=== PATIENT | female | born 1935 | race Caucasian/White ===

== ENCOUNTER 2018-08-17 16:12 | Inpatient (IN) | payer MEDICARE ==
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
--- NOTE | ~2018-08-17 | DS ---
PATIENT:ALEJO MARSH :31 MEDICAL RECORD: [id number] DISCHARGE SUMMARY ADMISSION DATE: 08/17/18 DISCHARGE DATE: 08/26/18 IDENTIFYING DATA: The patient is 83 years old and she was admitted to the hospital on a voluntary basis. The patient was having suicidal thoughts. Her daughter lives in [place] and is trying to manage her mother. The daughter has guardianship and apparently, the patient has been very agitated, disruptive, angry and is calling the police with very bizarre statements. The mother is also doing foolish things like letting a homeless man she found to live in her house with her. She is angry with the daughter for getting guardianship and made suicidal statements. HOSPITAL COURSE: The patient was admitted to the hospital and fully evaluated from both a medical, psychological, and social standpoint. She was found to have a significantly advanced dementia and was experiencing mood lability and impaired judgment associated with the dementia. She was treated with mood stabilizing and memory enhancing medications. She did show improvement in her behaviors and mood. She showed little or no improvement in her cognitive deficits. She was subsequently transitioned home with a time cycle operator caregiver who will be there on a 24-hour a day basis. DISCHARGE DIAGNOSES: AXIS I: Senile dementia of the Alzheimer's type with behavioral disturbances. AXIS II: None. AXIS III: Urinary frequency and gastroesophageal reflux disease. AXIS IV: Moderate. AXIS V: Global assessment of functioning is 40. PLAN: At the time of discharge, the patient was not dangerous to herself or others in any direct way. She did need supervision and arrangements were made for this. Her long-term prognosis is guarded. TRANSINT:[id number] Voice Confirmation ID: [id number] DOCUMENT ID: [id number] JAVAN RAMIREZ MD at 1229 CC: [id number] DICTATION DATE: 08/28/18 0916 SHOP COORDINATOR: 08/29/18 0039 DIS IN 08/26/18 [place] [id number] [place] [address]
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
--- NOTE | ~2018-08-17 | PN ---
PATIENT:ALEJO MARSH MEDICAL RECORD: [id number] LOCATION:[facility] ADMISSION DATE: 08/17/18 PROGRESS NOTE DATE OF SERVICE: 08/23/2018 SUBJECTIVE: The patient's case was discussed with staff. She has no new complaint. OBJECTIVE: The patient denies intent to harm herself or others. Her thought are better organized today. She is denying that she would want to hurt herself. She still insists that this homeless man who has been arrested for stealing from her should simply be released and returned to her home. She says that whatever he has stolen she will gladly just simply give to him. The daughter is her guardian. In the next few days if this level of improvement is maintained, she will be going to her own home, but there will be a live-in 24-hour a day caregiver with her. TRANSINT:[id number] Voice Confirmation ID: [id number] DOCUMENT ID: [id number] JAVAN RAMIREZ MD at 1233 CC: [id number] DICTATION DATE: 08/23/18 1308 MACHINE GROUP LEADER: 08/23/18 1433 ADM IN [facility] [address] [place] [address]
--- NOTE | ~2018-08-17 | PN ---
PATIENT:ALEJO MARSH MEDICAL RECORD: [id number] LOCATION:[facility] ADMISSION DATE: 08/17/18 PROGRESS NOTE DATE OF SERVICE: 08/26/2018 SUBJECTIVE: The patient's case was discussed with staff. She has no new complaint. OBJECTIVE: The patient is in good behavioral control, but quite impaired cognitively. She denies that she would seek to harm herself or others. She generally is tolerating her medicines well. ASSESSMENT: No change in diagnoses. PLAN: The patient will be transitioned out of the hospital soon. Her long-term prognosis is guarded. Followup will be with her primary care physician. TRANSINT:[id number] Voice Confirmation ID: [id number] DOCUMENT ID: [id number] JAVAN RAMIREZ MD at 0945 CC: [id number] DICTATION DATE: 08/26/18 1356 [place] UNDERWRITER: 08/26/18 1421 DIS IN 08/26/18 [place] [id number] [place] [address]
--- NOTE | ~2018-08-17 | PN ---
PATIENT:ALEJO MARSH MEDICAL RECORD: [id number] LOCATION:[facility] ADMISSION DATE: 08/17/18 PROGRESS NOTE DATE OF SERVICE: 08/22/2018 SUBJECTIVE: The patient's case was discussed with staff. She has no new complaint. OBJECTIVE: The patient denies intent to harm herself or others. She is tolerating her medications well. She has limited insight about her situation. ASSESSMENT: No change in diagnoses. PLAN: The patient will be given Namenda at a slightly higher dose of 5 mg twice daily. Her long-term prognosis is guarded. She makes no statements about wanting to hurt her daughter today. This is encouraging. She also tells me that she is fine with having a caregiver live in her house all the time. She wants Ferny Toledo to be the person who lives there, but he is currently in nursing home after having been arrested for stealing from her. When told that that is what has happened, she finds it ridiculous and says that anything in her house that he would like he can have and that she would not press charges. Apparently, this man is chronically mentally ill homeless person that the patient brought into her home. It is impossible to know the details about what happened and it is probably not appropriate for me to know all of those law enforcement details. I can just simply say that bringing a nonrelated chronically mentally ill homeless person into your house is probably not good judgment and it would be consistent with her dementia. TRANSINT:[id number] Voice Confirmation ID: [id number] DOCUMENT ID: [id number] JAVAN RAMIREZ MD at 1217 CC: [id number] DICTATION DATE: 08/22/18 1209 OBSTETRICIAN AND GYNAECOLOGIST: 08/22/18 1424 ADM IN [facility] [address] [place] [address]
--- NOTE | ~2018-08-17 | PN ---
PATIENT:ALEJO MARSH MEDICAL RECORD: [id number] LOCATION:[facility] ADMISSION DATE: 08/17/18 PROGRESS NOTE DATE OF SERVICE: 08/19/2018 SUBJECTIVE: The patient's case was discussed with staff. She has no new complaint. OBJECTIVE: The patient denies intent to harm herself or others. She generally tolerates her medications well. She is angry with her daughter, whom she accuses of malice in obtaining the guardianship. She insists there is nothing wrong with her, but she does not remember speaking to me yesterday and then seems amazed that I know the name of her daughter or some other details about her situation. She is also not fully oriented. She continues to insist the month is June. She did correctly identify the year though and that was without any kind of prompting or cueing this time. ASSESSMENT: No change in diagnoses. PLAN: The patient is in good behavioral control. She is certainly in need of supervision. She is denying that she wants to hurt herself. I am going to start her on a second medication for dementia, namely Namenda at a dose of 2.5 mg twice daily. She will be monitored for clinical changes associated with its use. TRANSINT:[id number] Voice Confirmation ID: [id number] DOCUMENT ID: [id number] JAVAN RAMIREZ MD at 1443 CC: [id number] DICTATION DATE: 08/19/18 1630 MELTING OPERATOR: 08/19/18 1903 ADM IN [place] [id number] [place] [address]
--- NOTE | ~2018-08-17 | PN ---
PATIENT:ALEJO MARSH MEDICAL RECORD: [id number] LOCATION:[facility] ADMISSION DATE: 08/17/18 PROGRESS NOTE DATE OF SERVICE: 08/24/2018 SUBJECTIVE: The patient's case was discussed with staff. She has no new complaint. OBJECTIVE: The patient is in good behavioral control with limited insight about her condition. She is tolerating her medicines well. ASSESSMENT: No change in diagnoses. PLAN: I anticipate the patient can be transitioned out of the hospital in a day or two if this level of improvement is maintained. TRANSINT:[id number] Voice Confirmation ID: [id number] DOCUMENT ID: [id number] JAVAN RAMIREZ MD at 1130 CC: [id number] DICTATION DATE: 08/24/18 1305 STAGE ELECTRICIAN: 08/24/18 1732 ADM IN [place] [id number] [place] [address]
--- NOTE | ~2018-08-17 | PN ---
PATIENT:ALEJO MARSH MEDICAL RECORD: [id number] LOCATION:[facility] ADMISSION DATE: 08/17/18 PROGRESS NOTE DATE OF SERVICE: 08/20/2018 SUBJECTIVE: The patient's case was discussed with staff. She has no new complaint. OBJECTIVE: The patient denies intent to harm herself or others. She generally tolerates her medicines well. ASSESSMENT: No change in diagnoses. PLAN: Brief supportive and educational interventions were made. Her long-term prognosis is guarded. I anticipate she can be transitioned out of the hospital soon if this level of improvement continues. TRANSINT:[id number] Voice Confirmation ID: [id number] DOCUMENT ID: [id number] JAVAN RAMIREZ MD at 1128 CC: [id number] DICTATION DATE: 08/20/18 1547 EQUIPMENT MANAGER: 08/20/18 1721 ADM IN [place] [id number] [place] [id number]
--- NOTE | ~2018-08-17 | PN ---
PATIENT:ALEJO MARSH MEDICAL RECORD: [id number] LOCATION:[facility] ADMISSION DATE: 08/17/18 PROGRESS NOTE DATE OF SERVICE: 08/25/2018 SUBJECTIVE: The patient's case was discussed with staff. She has no new complaint. OBJECTIVE: The patient is in good behavioral control and denies that she would seek to harm herself or others. She is tolerating her medicines well and is not showing evidence of overt psychotic symptoms. ASSESSMENT: No change in diagnoses. PLAN: Current medicines have been reviewed and will be maintained. Long-term prognosis is guarded. TRANSINT:[id number] Voice Confirmation ID: [id number] DOCUMENT ID: [id number] JAVAN RAMIREZ MD at 1353 CC: [id number] DICTATION DATE: 08/25/18 1145 SAWMILL PRODUCTION WORKER: 08/25/18 1219 ADM IN [place] [id number] [place] [address]
[2018-08-17] MEDS ORDERED: FLOXIN 0.3 % OTI5 ML LEFT EAR ×2 (19:17)
[2018-08-17] MEDS ORDERED: DETROL LA4 MG PO (19:18)
[2018-08-17] MEDS ORDERED: DONEPEZIL HCL10 MG PO (19:19)
[2018-08-17] MEDS ORDERED: PROLIA INJ 660 MG/M1 IJ (19:20)
[2018-08-17] MEDS ORDERED: BENZONATATE200 MG PO (19:20)
[2018-08-17] MEDS ORDERED: MUCINEX600 MG PO (19:23)
[2018-08-17] MEDS ORDERED: VITAMIN D250000 UNIT PO (19:25)
[2018-08-17] MEDS ORDERED: OMEPRAZOLE20 M1 PO (19:26)
[2018-08-17 19:39] VITALS: BP 161/80
[2018-08-18 01:37] VITALS: BP 161/80; BMI 21.0
[2018-08-18 05:06] LABS: BASOPHILS 0.2 % (0-2); EOSINOPHILS 2.1 % (0-7); HEMATOCRIT 37.8 % (36.0-48.0); HEMOGLOBIN 12.6 g/dL (12-16); IMMATURE GRANULOCYTES 0.3 % (0-5); MCHC 33.3 g/dL (31.0-37.0); MCV 87.1 fL (80.0-100.0); NEUTROPHILS 63.4 % (40-80); PLATELET COUNT 226 10x3/uL (130-400); RBC 4.34 10x6/uL (4.00-5.40); RDW 13.3 % (11.5-14.5); WBC 8.7 10x3/uL (4.8-10.8)
[2018-08-18 05:31] LABS: ALBUMIN 3.2 g/dL (3.4-5.0); ALKALINE PHOSPHATASE 49 U/L (46-116); ALT (SGPT) 24 U/L (10-68); CALC OSMOLALITY 278 mosm/kg (275-300); CALCIUM 8.8 mg/dL (8.5-10.1); CARBON DIOXIDE 28.9 mmol/L (21.0-32.0); CHLORIDE - SERUM 104 mmol/L (98-107); CHOL - HDL RATIO 2.8 ratio (2.3-4.1); CHOLESTEROL, TOTAL 156 mg/dL (0-200); CREATININE - SERUM 0.7 mg/dL (0.6-1.3); GLUCOSE 109 mg/dL (74-106); HDL CHOLESTEROL 55 mg/dL (32-96); LDL CHOLESTEROL 83 mg/dL (0-100); LDL-HDL RATIO 1.5 ratio (1.5-3.5); PROTEIN - SERUM 6.6 g/dL (6.4-8.2); SODIUM 138 mmol/L (136-145); THYROID STIMULATING HORMONE 1.21 uIU/mL (0.36-3.74); TRIGLYCERIDE 91 mg/dL (30-200); UREA NITROGEN 17 mg/dL (7-18); eGFR NON AFRICAN AMERICAN 84 mL/min (90-120)
[2018-08-18 07:00] VITALS: BP 138/90
[2018-08-18 20:41] VITALS: BP 137/81
[2018-08-19 08:00] VITALS: BP 181/92
[2018-08-19 09:54] VITALS: BMI 21.0
[2018-08-19 12:55] VITALS: Wt 52.2 kg
[2018-08-19 19:33] VITALS: BP 141/81
[2018-08-20 07:25] LABS: RAPID PLASMA REAGIN Non Reactive (Non Reactive); VITAMIN D 25 HYDROXY 95.2 ng/mL (30.0-100.0)
[2018-08-20 08:00] VITALS: BP 151/87
[2018-08-20 08:19] LABS: FOLATE (FOLIC ACID) - SERUM 6.8 ng/mL (>3.0)
[2018-08-20 20:04] VITALS: BP 142/76
[2018-08-21 08:00] VITALS: BP 150/98
[2018-08-21 19:36] VITALS: BP 115/62
[2018-08-22 09:50] VITALS: BP 144/71
[2018-08-22 20:00] VITALS: BP 149/76
[2018-08-23 11:16] VITALS: BP 111/61
[2018-08-23 12:22] LABS: APPEARANCE CLEAR (CLEAR); BILIRUBIN NEGATIVE (NEGATIVE); COLOR YELLOW (YELLOW); GLUCOSE NEGATIVE (NEGATIVE); KETONE NEGATIVE (NEGATIVE); NITRITE NEGATIVE (NEGATIVE); PROTEIN NEGATIVE (NEGATIVE); UROBILINOGEN NORMAL (NORMAL)
[2018-08-23 12:23] LABS: BACTERIA FEW /hpf (NONE SEEN); EPITHELIAL CELLS OCC /hpf (0-5); MUCUS >1+ /lpf (NONE SEEN); TALC POWDER CRYSTALS OCC /hpf (NONE SEEN); WHITE CELLS - URINE 0-5 /hpf (0-5)
[2018-08-23 20:08] VITALS: BP 162/92
[2018-08-24 08:45] VITALS: BP 131/76
[2018-08-24 09:56] LABS: APPEARANCE CLEAR (CLEAR); BILIRUBIN NEGATIVE (NEGATIVE); COLOR YELLOW (YELLOW); GLUCOSE NEGATIVE (NEGATIVE); KETONE NEGATIVE (NEGATIVE); NITRITE NEGATIVE (NEGATIVE); PROTEIN NEGATIVE (NEGATIVE); UROBILINOGEN NORMAL (NORMAL)
[2018-08-24 09:57] LABS: EPITHELIAL CELLS RARE /hpf (0-5); RED CELLS - URINE 0-5 /hpf (0-5); WHITE CELLS - URINE RARE /hpf (0-5)
[2018-08-24 19:49] VITALS: BP 119/66
[2018-08-25 07:00] VITALS: BP 128/77
[2018-08-25] MEDS ORDERED: VITAMIN B-121000 MCG PO (11:46)
[2018-08-25] MEDS ORDERED: Vitamin D PO (11:46)
[2018-08-25] MEDS ORDERED: NAMENDA5 MG PO (11:46)
[2018-08-25 20:27] VITALS: BP 150/76
[2018-08-26 07:00] VITALS: BP 148/73
== END 2018-08-26 13:15 | disposition home or self-care (01) | DRG 57 ==
LOC: D.PSYCH 16:12
PROVIDERS: Psychiatry & Neurology Psychiatry
DX: G30.1 Alzheimer's disease with late onset (principal); F02.81 Dementia in other diseases classified elsewhere, unspecified severity, with behavioral disturbance; R45.851 Suicidal ideations; N32.81 Overactive bladder; K21.9 Gastro-esophageal reflux disease without esophagitis; M81.0 Age-related osteoporosis without current pathological fracture; E55.9 Vitamin D deficiency, unspecified